=== PATIENT | female | born 1995 | race African-American/Black ===

== ENCOUNTER 2020-04-23 03:14 | Emergency (ER) | payer OTHER ==
[~2020-04-23] VITALS: Ht 162.6 cm; Wt 45.4 kg
[~2020-04-23 03:14] MED LIST: CLOTRIMAZOLE AF30 GM TP; PHENAZOPYRIDIN200 M2 PO
[2020-04-23 04:18] LABS: ABSOLUTE NEUTROPHILS 3.1 thou/uL (1.4-8.2); BASOPHILS 0.7 % (0.0-2.0); HEMATOCRIT 42.8 % (37.0-47.0); HEMOGLOBIN 14.4 gm/dL (12.0-15.0); LYMPHOCYTES 29.3 % (24.0-44.0); MCH 32.1 pg (26.0-34.0); MCHC 33.7 g/dL (28.0-37.0); MCV 95.5 fL (80.0-100.0); PLATELET COUNT 198 thou/uL (150-400); RBC 4.49 mil/uL (4.20-5.00); RDW 12.4 % (10.5-14.5); WBC 5.1 thou/uL (4.0-11.0)
[2020-04-23 04:28] LABS: ANION GAP 13 mmol/L (7-16); BUN 13 mg/dL (7-18); CALCIUM 9.1 mg/dL (8.5-10.1); CHLORIDE 99 mmol/L (98-107); CO2 23 mmol/L (21-32); CREATININE 0.8 mg/dL (0.6-1.0); GLUCOSE 99 mg/dL (74-106); POTASSIUM 3.7 mmol/L (3.5-5.1); SODIUM 135 mmol/L (136-145)
[2020-04-23 04:34] LABS: ALBUMIN 4.1 g/dL (3.4-5.0); SGOT 19 U/L (15-37); SGPT 32 U/L (30-65); TOTAL BILIRUBIN 0.8 mg/dL (0.2-1.0)
[2020-04-23 04:45] LABS: URINE BILIRUBIN NEGATIVE (Negative); URINE BLOOD NEGATIVE (Negative); URINE CLARITY CLEAR; URINE COLOR YELLOW; URINE GLUCOSE-RANDOM* NEGATIVE (Negative); URINE KETONES 3+ (Negative); URINE LEUKOCYTES-REFLEX NEGATIVE (Negative); URINE NITRITE-REFLEX NEGATIVE (Negative); URINE PROTEIN (DIPSTICK) NEGATIVE (Negative); URINE SPECIFIC GRAVITY 1.015 (1.005-1.035); URINE UROBILINOGEN 0.2 E.U./dl (0.2-1.0)
[2020-04-23 04:50] LABS: URINE REDUCING SUBSTANCE 0 %
[2020-04-23 04:50] LABS: SALICYLATE 3.7 mg/dL (2.8-20.0)
[2020-04-23 04:54] LABS: AMP/METHAMP Negative (Negative); BARBITURATES Negative (Negative); BENZODIAZEPINES Negative (Negative); COCAINE Negative (Negative); METHADONE Negative (Negative); OPIATES Negative (Negative); PCP Negative (Negative)
--- NOTE | 2020-04-23 07:09 | EKG ---
[address] [place] [address] ELECTROCARDIOGRAM REPORT Name: LISA HICKS Room #: REG LEELEE Harper#: [id number] Admission: 04/23/20 Attend Phys: Discharge: Date of : [birth year] Report #: [id number] [facility] ED Test Date: 2020-04-23 Test Time: 03:39:21 Pat Name: LISA HICKS Department: Room: Gender: F [employer] Train Driver: tevin : 1995 Requested By: Raghu Matson Order Number: [id number] MD: Jordan Castillo Measurements Intervals [place] Rate: 69 P: 21 CT: 121 QRS: 86 QRSD: 90 T: 55 QT: 389 QTc: 417 Interpretive Statements Sinus rhythm No previous ECG available for comparison Electronically Signed On 04-23-2020 7:09:32 [employer] DEVELOPER by Jordan Castillo [email or web address] <ELECTRONICALLY SIGNED> By: Jordan Castillo MD, [facility] 04/23/20 [phone] Jordan Castillo MD, FACC /EPI
[2020-04-23 18:31] VITALS: BP 132/90
--- NOTE | 2020-04-24 04:00 | NUR ---
THIS CHARGE NURSE RECEIVED A PHONE CALL FROM DETECTIVE KEATON HICKS [facility] [place] [facility]. [phone]. SERIAL #[id number]. LE HICKS WAS REACHING OUT TO LOCAL ER'S IN SEARCH OF PATIENT, FAMILY WAS TRYING TO FILE A MISSING PERSON'S REPORT BECAUSE THEY HAD NOT BEEN ABLE TO LOCATE PATIENT. INFORMATION PROVIDED THAT PATIENT HAD BEEN TRANSPORTED TO [facility] IN [place], [place].
== END 2020-04-23 18:31 | disposition still patient (30) ==
LOC: ER 03:14
PROVIDERS: Emergency Medicine
DX: F29 Unspecified psychosis not due to a substance or known physiological condition (principal); F41.9 Anxiety disorder, unspecified; F22 Delusional disorders; Z79.899 Other long term (current) drug therapy; Z20.822 Contact with and (suspected) exposure to COVID-19

== ENCOUNTER 2020-10-21 05:31 | Emergency (ER) | payer OTHER ==
[~2020-10-21] VITALS: Ht 162.6 cm; Wt 46.7 kg
[2020-10-21 07:11] VITALS: BP 122/64
== END 2020-10-21 07:11 | disposition home or self-care (01) ==
LOC: ER 05:31
DX: R04.2 Hemoptysis (principal); R11.2 Nausea with vomiting, unspecified